=== PATIENT | male | born 1950 | race Caucasian/White ===

== ENCOUNTER → 2019-01-27 11:13 | Outpatient (CLI) | payer OTHER, SELFPAY ==
[2019-01-27 11:33] LABS: Bacteria Urine None Seen; RBC Urine None Seen (0-5/HPF); WBC Urine None Seen (0-5/HPF)
[2019-01-27 11:59] LABS: Add Manual Diff / Slide Review NO; Basophils Absolute Auto 0 /uL (0-100); Basophils Percent Auto 0.6 % (0-2); Eosinophils Absolute Auto 200 /uL (0-450); Eosinophils Percent Auto 3.2 % (2-4); Hematocrit 44.5 % (41-53); Hemoglobin 15.4 g/dL (13.5-17.5); Lymphocytes Absolute Auto 1700 /uL (1100-4500); Lymphocytes Percent Auto 23.8 % (25-40); Mean Corpuscular HGB Conc 34.8 % (30-36); Mean Corpuscular Volume 89.3 fL (80-100); Monocytes Absolute Auto 500 /uL (0-900); Monocytes Percent Auto 7.5 % (3-14); Neutrophils Absolute Auto 4600 /uL (1500-7000); Neutrophils Percent Auto 64.9 % (50-75); Platelet Count 217 X10^3/uL (150-400); Red Blood Cell Count 4.98 X10^6/uL (4.5-5.9); Red Cell Distribution Width 13.6 % (11.6-14.8); White Blood Cell Count 7.1 X10^3/uL (4.5-11.0)
[2019-01-27 12:17] LABS: BUN Creatinine Ratio 27.5 (6-22); Blood Urea Nitrogen 22 mg/dL (9-20); Calcium 9.7 mg/dL (8.4-10.2); Carbon Dioxide 27 mmol/L (22-32); Chloride 102 mmol/L (98-107); Estimated Glomerular Filt Rate > 60.0 mL/min (>60); Glucose 88 mg/dL (80-110); HEMOLYSIS < 15 (0-50); Hemoglobin A1C% w Est Avg Glu 5.3 % (4.0-6.0); Potassium 4.3 mmol/L (3.4-5.1); Sodium 138 mmol/L (137-145)
[2019-01-27 12:38] LABS: Appearance Urine UA CLEAR; Bilirubin Urine UA NEGATIVE (NEGATIVE); Color Urine UA YELLOW; Glucose Urine UA NEGATIVE (Negative); Ketones Urine UA NEGATIVE (NEGATIVE); Leukocyte Esterase Urine UA NEGATIVE (NEGATIVE); Nitrite Urine UA NEGATIVE (Negative); Occult Blood Urine UA NEGATIVE (Negative); Protein Urine UA NEGATIVE (Negative); Specific Gravity Urine UA 1.015 (1.000-1.035); Urobilinogen Urine UA 0.2 E.U./dL (0.2)
[2019-01-27 12:57] LABS: Culture Indicated Urine Cult Not Indicated; Urine Comments Microscopic Normal
== END ==
PROVIDERS: PCP Internal Medicine; Visit Provider Orthopaedic Surgery
DX: N39.0 Urinary tract infection, site not specified (principal); R73.9 Hyperglycemia, unspecified; Z01.818 Encounter for other preprocedural examination
CPT/HCPCS: 36415; 80048; 81001; 83036; 85025; 93005; 93010

== ENCOUNTER 2019-02-11 08:41 | Inpatient (IN) | payer OTHER, SELFPAY ==
[2019-02-01 07:36] VITALS: BMI 30.4
[2019-02-11] VITALS (12 sets, daily range): BP systolic 116–147; BP diastolic 63–88; PULSE 54–70; RESP 14–17; TEMP 35.7–37.1; O2SAT 95–98; BMI 29.2
--- NOTE | 2019-02-11 06:00 | DI.RAD.S_ITS ---
PROCEDURE: XR KNEE LT 1TO2V INDICATIONS: post op flms TECHNIQUE: 2 view(s) of the knee acquired. COMPARISON: X-ray, Knee, arthritic series, 11/09/2018. FINDINGS: Bones: Patient is status post knee joint arthroplasty. Hardware components are in expected positions. Visualized bony structures are intact. Soft tissues: Overlying postoperative changes are noted. IMPRESSION: Bone as plasty with prosthesis in anatomic alignment. Dictated by: rEic Virk M.D. on 02/11/2019 at 15:21 Approved by: Eric Virk M.D. on 02/11/2019 at 15:22
[2019-02-11] MEDS: VANCOMYCIN 1,000 MG/200 ML PIGGYBACK 200 MG IV (09:30)
[2019-02-11] MEDS: LACTATED RINGERS 1,000 ML 42 ML IV ×2 (09:30→13:00)
[2019-02-11] MEDS: ACETAMINOPHEN 325 MG TABLET 975 MG PO ×3 (09:31→19:56)
[2019-02-11] MEDS: PREGABALIN 75 MG CAPSULE PO (09:31)
[2019-02-11] MEDS: CELECOXIB 200 MG CAPSULE PO (09:32)
--- NOTE | 2019-02-11 10:58 | PM.PREOP ---
Pre-operative Note Interval Note History & Physical reviewed/Exam performed by Physician: Yes Changes to H&P: No
--- NOTE | 2019-02-11 10:59 | PM.OP.1 ---
Operative Date/Time/Diagnoses Date of procedure: 02/11/19 Time of procedure: 11:30 Pre-op diagnosis: Left knee osteoarthritis Post-op diagnosis: same Procedure & Clinicians Procedure: Left total knee arthroplasty Same procedure as scheduled: Yes Indications: The patient has had progressively worsening left knee pain with radiographic changes consistent with arthritis. Non-operative management has failed and the patient has requested total knee replacement. The risks, benefits and alternatives to surgery were discussed with the patient prior to proceeding. Risks discussed included, but were not limited to, failure to relieve pain, stiffness, infection, nerve damage, deep venous thrombosis, pulmonary embolism, stroke, coma, heart attack, permanent paralysis and , as well as the potential need for eventual revision of the prosthetic. Surgeon: Ene Jeffery Awning Erector: Inge Capellan Anesthesia Type: General and Spinal Operative Notes Findings: Severe left knee osteoarthritis, adequate stability Closure Type: primary Prosthetic devices, grafts, tissues, transplants, or devices: Jeffery and Nephew Journey BCS 2 size 7 femur, size 7 tibia, +9 poly, 38 mm oval patella Applied: drain(s) Estimated Blood Loss (mL): 250 Blood products transfused: none Tourniquet time (min): 92 Procedure in detail: The patient was seen in the pre-operative area, where the patient identified the left knee as the operative site and this was marked with my initials. The patient received pre-operative antibiotics, and was taken to the operating room and placed on the operative table in the supine position. After satisfactory anesthesia, a multimedia project manager out was performed. The left leg was encircled with a tourniquet about the proximal thigh, and the leg was prepared from the toes to the tourniquet with ChloroPrep in the usual fashion and draped through sterile drapes. The leg was elevated and exsanguinated with Eschmark bandage and the tourniquet inflated to [250] mmHg pressure. The knee was approached through an approximately 18 cm incision centered over the patella and carried into the knee through a medial parapatellar arthrotomy. A portion of the medial and lateral meniscus was resected. Soft tissue was carefully mobilized around the patella the patella was measured with a caliper. Bone was resected from the patella and the patellar height was reconstituted with up an appropriate sized patellar component. A cover was then placed on the patella. A small amount of additional medial and lateral meniscus was resected. The distal femur was cut at 5?. A [+2] cut was used. It looked like an appropriate distal femoral cut and the cut was made without difficulty. An extramedullary guide was used for the tibial cut. 8 mm was resected off the least affected side.The tibia was prepared. There was a large lateral osteophyte on the lateral tibial plateau and a deficient lateral femoral condyle. The rotation was assessed. The patient was placed in extension residual medial and lateral meniscus as well as any residual bone was carefully resected. [No] additional tibia was resected. Hemostasis was achieved especially posteriorly. Additional local was injected into the posterior capsule. The extension gap was assessed and additional releases for gap balancing were performed as necessary. It was checked with the gap flame cutting machine operator helper. The gap balancing in flexion was specifically checked I used combination of manual referencing with 3? of external rotation as well as gap balancing and they were both basically at the same place on the femur. The femur was finished for a size 7 which appeared appropriate without notching. The femoral component trial was placed and the notch was finished. The rotation was assessed and the appropriate size femoral guide was placed on the distal femur and finishing cuts were made. There was no evidence of notching. The anterior, posterior and chamfer cuts were then made. The posterior osteophytes and soft tissues were then removed. The posterior capsule was injected with part of a mixture of 60 ml 0.25% Marcaine mixed with 20 ml Exparel for post operative pain control. The remainder of this mixture was injected into the capsule and subcutaneous tissues during cement curing. The tibial and femoral components were then placed and the knee placed through a range of motion. Range of motion was [0-130], with good stability throughout the range. The trials were then removed, and the tibia was finished. The bone was prepared with pulsatile lavage, and dried with a sponge. Cement was applied and the final prosthetics placed. Excess cement was removed during and after cement curing. A brief Betadine soak was performed. After confirming there was no extruded cement posteriorly, the final tibial insert was placed. The knee was copiously irrigated and the tourniquet deflated. Hemostasis was obtained with the [bovie]. A drain was placed and brought out superolaterally. The capsule was closed with interrupted vicryl suture. The subcutaneous layer was closed with barbed sutures, and the skin with a running 3-0 V-Lock suture and Surgical glue. An Aquacel Ag dressing was applied and the patient was taken to recovery having tolerated the procedure well. Complications: none Post-operative Condition: stable Disposition: Acute Care Plan for aftercare: The patient will be maintained on a standard total knee replacement protocol with weight bearing as tolerated. The patient will receive aspirin and sequential compression devices for DVT prophylaxis. The patient will be discharged home when safe for the home environment.
[2019-02-11] MEDS: CEFAZOLIN 2 GM/100 ML FROZ.PIGGY IV ×2 (11:29→20:36)
[2019-02-11] MEDS: TRANEXAMIC ACID 1,000 MG VIAL 1000 MG INJ ×2 (11:30→12:15)
--- NOTE | 2019-02-11 12:01 | SUR.OPER ---
Supine on padded OR bed. Pillow under head, arms secured on padded armboards <90 degree abduction. Safety belt across torso. Non-operative leg secured with tape over blanket over lower leg. Operative leg secured in DeMayo/Guerrero positioner. Foam padded brace at thigh of operative leg.
--- NOTE | 2019-02-11 12:07 | PC.NURSE ---
Day shift: Pt not on AC unit at this time.
[2019-02-11] MEDS: BUPIVACAINE 0.25% W/ EPI 30 ML VIAL 60 ML INJ (12:12)
[2019-02-11] MEDS: BUPIVACAINE LIPOSOME 266 MG/20 ML VIAL INJ (12:13)
--- NOTE | 2019-02-11 12:17 | SUR.OPER ---
INHALER IN LABELED BAG TO PACU WITH PATIENT. GLASSES TO .
--- NOTE | 2019-02-11 15:05 | SUR.PHASEI ---
report given to Lashell SMYTH
--- NOTE | 2019-02-11 16:05 | PT.IIE ---
Current Diagnoses Unilateral primary osteoarthritis, left knee (02/11/19) Surgery Performed Operation Date: 02/11/19 10:45 Actual Procedures p Total Knee Arthroplasty(Left) - Ene Jeffery MD Surgical History (Last Updated 02/01/19 @ 08:17 by Maryanne Marcum, RN) History of arthroscopy of both knees (Acute) Hx of hernia repair (Acute) Hx of tonsillectomy (Acute) Medical History (Last Updated 02/01/19 @ 08:17 by Maryanne Marcum RN) Acid reflux (Acute) Asthma (Acute) Easy bruisability (Acute) Osteoarthritis (Acute) Pneumonia (Acute) SCC (squamous cell carcinoma) (Acute) Physical Therapy Inpatient Evaluation/Re-Eval M1 PT/OT-IP Prior Functional Status Start: 02/11/19 17:16 Freq: NEEDED Status: Active Protocol: Document 02/11/19 16:05 AB (Rec: 02/11/19 17:31 AB [id number]) Medical Review Prior Functional Status Medical History Reviewed Yes Diet/Fluid Consistency Regular Communication able to make needs known Mobility and Gait pt stated that he is independent with all mobilities and ambulation without AD. stated that he is able to walk ~ 3 miles without rest Social History Household Members spouse Living Arrangements House Number of Floors (Floors) Two Floors Number of Stairs To Enter/Railing? pt will stay on main level has 1 step to enter Home Environment Standard Height Toilet,Walk in Shower,Built-In Shower Seat Home Equipment Front Wheel Walker,Hand Held Shower,Grab Bars Near Toilet, Grab Bars In Shower M2 PT-IP Current Condition Start: 02/11/19 17:16 Freq: NEEDED Status: Active Protocol: Document 02/11/19 16:05 AB (Rec: 02/11/19 17:31 AB [id number]) Physical Therapy Current Condition Current Condition Evaluation Date 02/11/19 Treatment Diagnosis s/p L TKA; difficulty in walking Onset Date 02/11/19 Weight Bearing Status Weight Bearing Status Weight Bear as Tolerated M3 PT-IP Subjective Start: 02/11/19 17:16 Freq: NEEDED Status: Active Protocol: Document 02/11/19 16:05 AB (Rec: 02/11/19 17:31 AB [id number]) Subjective Physical Therapy Visit Type Type Initial Evaluation Visit Start Time 16:05 Visit Stop Time 17:10 Total Visit Minutes 65 Number of BRASSIERE CUP MOLD CUTTER Visits 0 Physical Therapy Visit Comments Patient Comments pt agreeable to do PT Patient Goals wants to go home tonight Therapy Pain Assessment Pain Present Pain Present Pain Reported Location Left Knee Intensity 1 Scale Used Numeric (1 - 10) M4 PT-IP Mobility and Gait Start: 02/11/19 17:16 Freq: NEEDED Status: Active Protocol: Document 02/11/19 16:05 AB (Rec: 02/11/19 17:31 AB [id number]) PT-Bed Mobility Assessment Supine to Sit Supine to Sit Standby Assistance PT-Transfer Assessment Sit to and From Stand Sit to and from Stand Standby Assistance,Contact Guard Assistance,1 Person Assistance,Use of Upper Extremities Equipment Transfer Assistive Device Bed Rail,Front Wheeled Walker Orthotic/Prosthetic Devices or Brace: No Transfers Transfer Destination Chair Transfer Technique Stand Step Pivot Transfer Ability Level of Assist Standby Assistance,Contact Guard Assistance Comments Mobility Comments pt completed supine to sit SBA . completed sit to stand SBA to CGA and completed step transfer to chair using FWW CGA. pt completed sit to stand from chair CGA and ambulated in room using FWW ~ 30 ft CGA. pt sat back on chair. caregiver training conducted. educated spouse on how to assist pt and how to use safety belt. spouse assisted pt with sit to stand and ambulation in room using FWW ~ 75 ft. spouse provided CGA. pt agreed to do steps. ambulated in hallway using FWW CGA ~ 100 ft with spouse assisting. pt completed up/down platform step using FWW CGA initially assisted by PT then pt completed again with spouse assisted and completed safely. pt assisted back to his room . ambulated from w/c to the chair using FWW CGA with spouse assisting. pt sat on chair. set up pt for dinner. call light within reach. left pt with spouse in room . Gait Assessment Gait Gait Assistance Required: Standby Assistance,Contact Guard Assist Distance (Feet) 100 Able to Maintain Weight Bearing Status Yes During Gait Assistive Devices Assistive Device Gait Belt,Front Wheeled Walker Orthotic/Prosthetic Devices or Brace: No Gait Deviations General Gait Pattern Antalgic,Decreased Stride Length,Decreased Feet Clearance,Narrow Based Gait Factors Limiting Gait Function Factors Limiting Gait Function Decreased Activity Tolerance, Decreased Sensation,Decreased Strength,Limited Range of Motion,Pain,Poor Balance,Poor Safety Awareness Comments Gait Comments pls refer to mobility section for details Stair Climbing Assessment Evaluation Level of Assist On Stairs Contact Guard Assistance Devices Stair Climbing Assistive Devices Front Wheel Walker Technique/Endurance Stair Climbing Direction Ascend and Descend Stair Climbing Technique Step to Step Number of Steps Climbed 1 Query Text: Stair Climbing Set # Repetitions (reps) 2 Comments Stair Climbing Comments pls refer to mobiltiy section for details PT-Balance Assessment Sitting Balance and Reactions Static Sitting Balance Ability Normal Dynamic Sitting Balance Ability Normal Standing Balance and Reactions Static Standing Balance Ability Good Dynamic Standing Balance Ability Fair Device Used FWW M5 PT-IP Objective Assessments Start: 02/11/19 17:16 Freq: NEEDED Status: Active Protocol: Document 02/11/19 16:05 AB (Rec: 02/11/19 17:31 AB [id number]) Orientation Orientation/Cognition Level of Alertness Alert Orientation Name,Age,Birthday,Month,Date, Year,Day of Week,Place, Situation Language Function Ability No Deficits Noted Safety Awareness Understands Safety Issues Memory Description No Deficits Noted Gross Range of Motion Lower Extremity ROM Assessment Within Functional Limits Impairments L knee flexion: ~ 100 deg Strength Lower Extremity Strength Assessment Left Impaired Hip 4/5 Knee 4-/5 Coordination Assessment Gross Coordination Gross Coordination WNL Sensation Assessment Sensation Sensation Description Numbness Comments Sensation Comments c/o numbness on buttocks Muscle Tone Muscle Tone WNL Yes M6 PT-IP Treatment Start: 02/11/19 17:16 Freq: NEEDED Status: Active Protocol: Document 02/11/19 16:05 AB (Rec: 02/11/19 17:31 AB [id number]) Physical Therapy Treatment Exercises Exercises Heel Slides Education Education Provided Precautions,Weight Bearing Status,Post-Op Packet,Safety Other Treatments Other Treatment Performed reviewed HEP with pt M7 PT-IP Assessment and Plan Start: 02/11/19 17:16 Freq: NEEDED Status: Active Protocol: Document 02/11/19 16:05 AB (Rec: 02/11/19 17:31 AB [id number]) PT Summary Assessment and Plan Potential Rehabilitation Potential Good Status of Condition at Evaluation Stable Summary Impairments Pain,ROM,Strength,Balance, Sensation,Bed Mobility, Transfers,Gait,Activity Tolerance Assessment Summary pt requiring SBA to CGA with mobility. pt plans to go home and spouse to assist him. caregiver training conducted and spouse was able to assist pt safely. pt may go home when medically stable. Goals Bed Mobility Goal Independent Transfer Goal Independent,Front Wheeled Walker Gait Goal Independent,Front Wheel Walker Gait Distance 250 Other Goals up/down 1 step using FWW SBA Days to Meet Goals 3 Frequency of Treatment Frequency Of Treatment Twice a Day Treatment Plan Physical Therapy Treatment Plan Bed Mobility Training,Transfer Training,Gait Training, Therapeutic Exercise,Balance Retraining,Post Op Education, Discharge Planning,Hot or Cold Pack,Neuromuscular Re-ed, Coordination Retraining,Manual Therapy Recommendations To Nursing Amount of Assist Needed 1 Person Assist Discharge Recommendations PT Discharge Recommendations Home with Assistance, Outpatient PT
--- NOTE | 2019-02-11 16:25 | PC.NURSE ---
Addendum entered by Shasta Hinton R.N. 02/11/19 22:06: also made Dr. Araujo aware regarding their desire to discharge home, however patient decided to stay for the night. Addendum entered by Shasta Hinton R.N. 02/11/19 22:03: Patient wanted to go home this evening, per PT, patient safe for home discharge. Patient later decided to not to discharge due to pain control and hemovac drainage. Notified Dr. Araujo regarding amount of hamovac drainage of 250 ml at 1900, bloody drainage. Original Note: Dominique shift note: Patient awake, alert, and pleasant. Sitting up in bed, with Aquacel to left knee secured with Ramin Wrap. SCDs in place. at bedside providing supportive care. Patient states would like to go home this evening. PT Padma at bedside providing supportive care. Call light within reach
[2019-02-11] MEDS: LACTATED RINGERS 1,000 ML 125 ML IV (16:54)
[2019-02-11] MEDS: OXYCODONE IR 5 MG TABLET PO ×3 (17:26→23:33)
[2019-02-11] MEDS: ASPIRIN EC 81 MG TABLET PO (19:57)
[2019-02-11] MEDS: DOCUSATE 100 MG CAPSULE PO (19:57)
[2019-02-11] MEDS: ZOLPIDEM 5 MG TABLET 2.5 MG PO (21:43)
[2019-02-12] MEDS: OXYCODONE IR 5 MG TABLET PO ×3 (02:14→10:28)
[2019-02-12] MEDS: LACTATED RINGERS 1,000 ML 125 ML IV (04:31)
[2019-02-12] MEDS: CEFAZOLIN 2 GM/100 ML FROZ.PIGGY IV (04:31)
[2019-02-12 04:35] VITALS: BP 129/58; PULSE 70; RESP 16; TEMP 37.4; O2SAT 97
[2019-02-12 06:12] LABS: Hematocrit 36.3 % (41-53); Hemoglobin 12.6 g/dL (13.5-17.5)
--- NOTE | 2019-02-12 08:30 | PT.IPTN ---
Current Diagnoses Unilateral primary osteoarthritis, left knee (02/11/19) Surgery Performed Operation Date: 02/11/19 10:45 Actual Procedures p Total Knee Arthroplasty(Left) - Ene Jeffery MD Physical Therapy Treatment Note M2 PT-IP Current Condition Start: 02/11/19 17:16 Freq: NEEDED Status: Active Protocol: Document 02/11/19 16:05 AB (Rec: 02/11/19 17:31 AB [id number]) Physical Therapy Current Condition Current Condition Evaluation Date 02/11/19 Treatment Diagnosis s/p L TKA; difficulty in walking Onset Date 02/11/19 Weight Bearing Status Weight Bearing Status Weight Bear as Tolerated M3 PT-IP Subjective Start: 02/11/19 17:16 Freq: NEEDED Status: Active Protocol: Document 02/12/19 07:30 AMB (Rec: 02/12/19 11:43 AMB [email or web address]) Subjective Physical Therapy Visit Type Type Treatment Note Visit Start Time 07:30 Visit Stop Time 08:10 Total Visit Minutes 40 Number of STAVE INSPECTOR Visits 0 Physical Therapy Visit Comments Patient Comments Pt states pain is 2/10. Hoping to go home today. M4 PT-IP Mobility and Gait Start: 02/11/19 17:16 Freq: NEEDED Status: Active Protocol: Document 02/12/19 07:30 AMB (Rec: 02/12/19 11:43 AMB [id number]) PT-Bed Mobility Assessment Supine to Sit Supine to Sit Standby Assistance PT-Transfer Assessment Sit to and From Stand Sit to and from Stand Standby Assistance,Use of Upper Extremities Equipment Transfer Assistive Device Front Wheeled Walker Transfers Transfer Destination Chair Transfer Technique Stand Step Pivot Transfer Ability Level of Assist Standby Assistance Comments Mobility Comments Pt ambulated 100 ft; with CGA from spouse. Spouse appropriately guarding with gait belt. Used w/c to get the rest of the way to the stairs due to pain management. Pt ascended 1 step with FWW with spouse providing CGA x 2. Spouse/pt needed cues for sequencing step but then performed appropriately. Gait Assessment Gait Gait Assistance Required: Standby Assistance,Contact Guard Assist Distance (Feet) 100 Able to Maintain Weight Bearing Status Yes During Gait Assistive Devices Assistive Device Gait Belt,Front Wheeled Walker Orthotic/Prosthetic Devices or Brace: No Gait Deviations General Gait Pattern Antalgic,Decreased Stride Length,Decreased Feet Clearance,Narrow Based Gait Comments Gait Comments Pt unable to step through due to pain Stair Climbing Assessment Evaluation Level of Assist On Stairs Contact Guard Assistance Devices Stair Climbing Assistive Devices Front Wheel Walker Technique/Endurance Stair Climbing Direction Ascend and Descend Stair Climbing Technique Step to Step Number of Steps Climbed 1 Stair Climbing Set # Repetitions (reps) 2 M5 PT-IP Objective Assessments Start: 02/11/19 17:16 Freq: NEEDED Status: Active Protocol: Document 02/11/19 16:05 AB (Rec: 02/11/19 17:31 AB [id number]) Orientation Orientation/Cognition Level of Alertness Alert Orientation Name,Age,Birthday,Month,Date, Year,Day of Week,Place, Situation Language Function Ability No Deficits Noted Safety Awareness Understands Safety Issues Memory Description No Deficits Noted Gross Range of Motion Lower Extremity ROM Assessment Within Functional Limits Impairments L knee flexion: ~ 100 deg Strength Lower Extremity Strength Assessment Left Impaired Hip 4/5 Knee 4-/5 Coordination Assessment Gross Coordination Gross Coordination WNL Sensation Assessment Sensation Sensation Description Numbness Comments Sensation Comments c/o numbness on buttocks Muscle Tone Muscle Tone WNL Yes M6 PT-IP Treatment Start: 02/11/19 17:16 Freq: NEEDED Status: Active Protocol: Document 02/12/19 07:30 AMB (Rec: 02/12/19 11:43 AMB [email or web address]) Physical Therapy Treatment Exercises Exercises Ankle Pumps,Quad Sets,Heel Slides,Short Arc Quads Education Education Provided Precautions,Weight Bearing Status,Post-Op Packet,Safety Other Treatments Other Treatment Performed reviewed HEP extensively as pt had multiple questions M7 PT-IP Assessment and Plan Start: 02/11/19 17:16 Freq: NEEDED Status: Active Protocol: Document 02/12/19 07:30 AMB (Rec: 02/12/19 11:43 AMB [id number]) PT Summary Assessment and Plan Summary Assessment Summary Pt requiring SBA and then CGA with stairs. Pt's spouse able to provide this appropriately . Pt to go home with spouse when medically stable. Recommendations To Nursing Amount of Assist Needed 1 Person Assist Discharge Recommendations PT Discharge Recommendations Home with Assistance, Outpatient PT
[2019-02-12] MEDS: DOCUSATE 100 MG CAPSULE PO (08:35)
[2019-02-12] MEDS: ASPIRIN EC 81 MG TABLET PO (08:35)
[2019-02-12] MEDS: CELECOXIB 100 MG CAPSULE PO (08:35)
[2019-02-12] MEDS: ACETAMINOPHEN 325 MG TABLET 975 MG PO (08:36)
[2019-02-12 09:33] VITALS: BP 137/73; PULSE 82; RESP 16; TEMP 36.9; O2SAT 95
--- NOTE | 2019-02-12 10:41 | CM.IDA ---
Initial DCP Assessment Note: Pt is a 68 yo resident of [place]. Pt is POD#1 from [facility] knee surgery done by Dr Jeffery. PCP: Dori Jovel Payer: Jaeck LAWRENCE Reviewed chart. Pt discussed in multidisciplinary rounds. PT pending today. Met w/pt and his spouse at bedside, explained SW role. Both eager to return home today and tell this SEEDLING SORTER that the only concern voiced by Ortho team is that pt's drain continues to have significant drainage and so he has not been cleared for DC yet. Pt feels confident about his therapy session this morning and is planning to return home w/spouse to assist. No barriers identified to safe return home w/spouse assist, outpt f/u. SAMARA Padron Discharge Planning/Care Management Advanced directive, confirm from FAMILY Start: 02/11/19 16:07 Freq: Q24H Status: Active Protocol: Document 02/11/19 16:07 EM (Rec: 02/11/19 16:31 EM [id number]) Advance Directive, confirm on record Time 16:31 Person contacted [place] Copy received No CM Discharge Assessment Start: 02/12/19 10:39 Freq: Status: Active Protocol: Document 02/12/19 10:40 BRIAN (Rec: 02/12/19 10:41 BRIAN [id number]) Discharge Planning Assessment Assigned Assisted Living Administrator SAMARA Booker DPOA/Assigned Designee Name Mercy Cho spouse Contact Information [phone] Advance Directives? Yes Advance Directives on File No History Provided By Patient,Significant Other Prior Living Arrangements House Household Members spouse Type of transporation used prior to Drives own vehicle admit Independent with ADL's Yes Is patient alert and oriented? Yes Barriers to Discharge No Discharge Plan Home Transportation Arrangement Family Referrals Initiated None needed Whiteboard Updated in Patient Room with Yes name and ext. # of Assisted Living Administrator Review Status In Process
--- NOTE | 2019-02-12 13:07 | PC.NURSE ---
Day shift: Pt left unit in WC to private car driven by spouse by this clinical writer. Paperwork signed and all questions answered. Pt has all personal belongings. Pt is [employer] and has MD scrips. Also MD scrip for [employer] given to Pt.
== END 2019-02-12 13:08 | disposition home or self-care (01) | DRG 470 ==
PROVIDERS: Admitting Provider Orthopaedic Surgery; PCP Internal Medicine; Visit Provider Orthopaedic Surgery
PROC: 0SRD0JZ Replacement of Left Knee Joint with Synthetic Substitute, Open Approach (ICD-10-PCS; CPT 27447; principal; 2019-02-11 10:45)
DX: M17.12 Unilateral primary osteoarthritis, left knee (principal)
CPT/HCPCS: 36415; 73560; 85014; 85018; 97110; 97116; 97161; 97530; C1776; C9290; J0690; J2250; J2704; J3010

== ENCOUNTER → 2019-06-09 14:03 | Outpatient (CLI) | payer OTHER, SELFPAY ==
[2019-02-11 15:45] VITALS: BMI 29.2
[2019-06-09 14:38] LABS: Add Manual Diff / Slide Review NO; Basophils Absolute Auto 0 /uL (0-100); Basophils Percent Auto 0.5 % (0-2); Eosinophils Absolute Auto 200 /uL (0-450); Eosinophils Percent Auto 3.4 % (2-4); Hematocrit 44.1 % (41-53); Hemoglobin 14.8 g/dL (13.5-17.5); Lymphocytes Absolute Auto 1500 /uL (1100-4500); Lymphocytes Percent Auto 22.6 % (25-40); Mean Corpuscular HGB Conc 33.5 % (30-36); Mean Corpuscular Hemoglobin 27.3 PG (26-34); Mean Corpuscular Volume 81.6 fL (80-100); Monocytes Absolute Auto 500 /uL (0-900); Monocytes Percent Auto 7.8 % (3-14); Neutrophils Absolute Auto 4500 /uL (1500-7000); Neutrophils Percent Auto 65.7 % (50-75); Platelet Count 218 X10^3/uL (150-400); Red Cell Distribution Width 18.4 % (11.6-14.8); White Blood Cell Count 6.8 X10^3/uL (4.5-11.0)
== END ==
PROVIDERS: PCP Internal Medicine; Visit Provider Orthopaedic Surgery
DX: Z01.812 Encounter for preprocedural laboratory examination (principal)
CPT/HCPCS: 36415; 85025

== ENCOUNTER 2019-07-06 11:38 | Day surgery (SDC) | payer OTHER, SELFPAY ==
[2019-02-11 15:45] VITALS: BMI 29.2
[2019-06-18 08:41] VITALS: BMI 30.1
[2019-07-06] VITALS (12 sets, daily range): BP systolic 97–150; BP diastolic 58–86; PULSE 70–86; RESP 13–17; TEMP 35.9–36.8; O2SAT 93–97
--- NOTE | 2019-07-06 06:00 | DI.RAD.S_ITS ---
PROCEDURE: XR KNEE RT 1TO2V INDICATIONS: total right knee TECHNIQUE: 2 views of the knee were acquired. COMPARISON: [facility] [place], CR, XR KNEE ARTHRITIC SERIES LT, 11/09/2018, 16:30. [facility], MR, MR KNEE LEFT WITHOUT CONTRAST, 10/29/2018, 8:52. [facility] [place], CR, XR KNEE ARTHRITIC SERIES RT, 07/01/2019, 11:37. [facility], CR, XR KNEE LT 1TO2V, 02/11/2019, 14:43. FINDINGS: Bones: No fractures or dislocations involving the right knee which has undergone total knee arthroplasty with device is in normal position and establishing normal alignment. No suspicious bony lesions. Note is made of rounded calcific radiodensities posterior to the right knee, previously present, potentially loose bodies within a large Orozco's cyst. Soft tissues: No joint effusion. No suspicious soft tissue calcifications. IMPRESSION: Normal alignment after right total knee arthroplasty. 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 Dictated by: Petros Lopez M.D. on 07/06/2019 at 18:04 Approved by: Petros Lopez M.D. on 07/06/2019 at 18:07
[2019-07-06] MEDS: ACETAMINOPHEN 325 MG TABLET 975 MG PO (12:20)
[2019-07-06] MEDS: PREGABALIN 75 MG CAPSULE PO (12:21)
[2019-07-06] MEDS: CELECOXIB 200 MG CAPSULE PO (12:21)
[2019-07-06] MEDS: LACTATED RINGERS 1,000 ML 42 ML IV ×2 (12:37→15:42)
[2019-07-06] MEDS: VANCOMYCIN 1,000 MG/200 ML PIGGYBACK 200 MG IV (13:19)
--- NOTE | 2019-07-06 14:19 | PM.PREOP ---
Pre-operative Note Interval Note History & Physical reviewed/Exam performed by Physician: Yes Changes to H&P: No
--- NOTE | 2019-07-06 14:20 | PM.OP.1 ---
Operative Date/Time/Diagnoses Date of procedure: 07/06/19 Time of procedure: 14:58 Pre-op diagnosis: Severe posttraumatic right knee osteoarthritis, history of previous right ACL reconstruction with retained internal fixation Post-op diagnosis: same Procedure & Clinicians Procedure: Right total knee arthroplasty, removal of it retained internal fixation Same procedure as scheduled: Yes Indications: The patient has had progressively worsening right knee pain with radiographic changes consistent with arthritis. He has a history of a right ACL reconstruction with severe posttraumatic arthritis and retained internal fixation. Non-operative management has failed and the patient has requested total knee replacement. The risks, benefits and alternatives to surgery were discussed with the patient prior to proceeding. Risks discussed included, but were not limited to, failure to relieve pain, stiffness, infection, nerve damage, deep venous thrombosis, pulmonary embolism, stroke, coma, heart attack, permanent paralysis and , as well as the potential need for eventual revision of the prosthetic. Surgeon: Ene Jeffery Activities Volunteer: Lindsey Murdock Anesthesia Type: General and Spinal Operative Notes Findings: Severe right knee osteoarthritis, adequate stability, adequate bone Closure Type: primary Specimen(s): none sent Prosthetic devices, grafts, tissues, transplants, or devices: Journey BCS 2 size 7 femur, size 6 tibia, 38 mm oval patella, +9 poly Applied: drain(s) Estimated Blood Loss (mL): 250 Blood products transfused: none Tourniquet time (min): 118 Procedure in detail: The patient was seen in the pre-operative area, where the patient identified the right knee as the operative site and this was marked with my initials. The patient received pre-operative antibiotics, and was taken to the operating room and placed on the operative table in the supine position. After satisfactory anesthesia, a interactive multimedia designer out was performed. The right leg was encircled with a tourniquet about the proximal thigh, and the leg was prepared from the toes to the tourniquet with ChloroPrep in the usual fashion and draped through sterile drapes. The leg was elevated and exsanguinated with Eschmark bandage and the tourniquet inflated to 250 mmHg pressure. The knee was approached through an approximately 18 cm incision centered over the patella and carried into the knee through a medial parapatellar arthrotomy. A portion of the medial and lateral meniscus was resected. Soft tissue was carefully mobilized around the patella the patella was measured with a caliper. Bone was resected from the patella and the patellar height was reconstituted with up an appropriate sized patellar component. A cover was then placed on the patella. A small amount of additional medial and lateral meniscus was resected. The distal femur was cut at 5?. A +2 cut was used. It looked like an appropriate distal femoral cut and the cut was made without difficulty. An extramedullary guide was used for the tibial cut. 10 mm was resected off the least affected side. The patient was placed in extension residual medial and lateral meniscus as well as any residual bone was carefully resected. No additional tibia was resected. Hemostasis was achieved especially posteriorly. Additional local was injected into the posterior capsule. The extension gap was assessed and additional releases for gap balancing were performed as necessary. It was checked with the gap logging operations inspector. The rotation was assessed and the appropriate size femoral guide was placed on the distal femur and finishing cuts were made. There was no evidence of notching. The anterior, posterior and chamfer cuts were then made. The posterior osteophytes and soft tissues were then removed. The posterior capsule was injected with part of a mixture of 60 ml 0.25% Marcaine mixed with 20 ml Exparel for post operative pain control. Multiple loose bodies were removed from the posterior aspect of the knee. The notch was finished. The remainder of this mixture was injected into the capsule and subcutaneous tissues during cement curing.l tibial and femoral components were then placed and the knee placed through a range of motion. Range of motion was 0-130, with good stability throughout the range. The trials were then removed, and the tibia was drilled. The screw was encountered at the inferior aspect of the drill. The incision was extended distally dissection was carried out down along the proximal medial tibia and the screw head was carefully identified cleared of soft tissue and removed. The drill was then reinserted for the tibial base place and the punch was inserted. There was significant sclerotic bone in the medial tibia and multiple additional drill holes were made with a 2.0 drill.. The bone was prepared with pulsatile lavage, and dried with a sponge. Cement was applied and the final prosthetics placed. Excess cement was removed during and after cement curing. A brief Betadine soak was performed. After confirming there was no extruded cement posteriorly, the final tibial insert was placed. The knee was copiously irrigated and the tourniquet deflated. Hemostasis was obtained with the Aquamantys system. A drain was placed and brought out superolaterally. The capsule was closed with interrupted nonabsorbable suture. The subcutaneous layer was closed with barbed sutures, and the skin with a running 3-0 V-Lock suture and Surgical glue. An Aquacel Ag dressing was applied and the patient was taken to recovery having tolerated the procedure well. Complications: none Post-operative Condition: stable Disposition: Acute Care Plan for aftercare: The patient will be maintained on a standard total knee replacement protocol with weight bearing as tolerated. The patient will receive aspirin and sequential compression devices for DVT prophylaxis. The patient will be discharged home when safe for the home environment.
[2019-07-06] MEDS: CEFAZOLIN 2 GM/100 ML FROZ.PIGGY IV ×2 (14:29→21:16)
[2019-07-06] MEDS: TRANEXAMIC ACID 1,000 MG VIAL 1000 MG INJ ×2 (15:01→17:16)
[2019-07-06] MEDS: BUPIVACAINE LIPOSOME 266 MG/20 ML VIAL INJ (15:25)
[2019-07-06] MEDS: SODIUM CHLORIDE IRRIG SOLUTION 250 ML, POVIDONE-IODINE SPONGE STICKS 1 APPLIC IRR (15:26)
[2019-07-06] MEDS: BUPIVACAINE 0.25% W/ EPI 30 ML VIAL INJ (15:29)
[2019-07-06] MEDS: LACTATED RINGERS 1,000 ML 125 ML IV (18:38)
[2019-07-06] MEDS: ASPIRIN EC 81 MG TABLET PO (21:16)
[2019-07-06] MEDS: ACETAMINOPHEN 325 MG TABLET 650 MG PO (21:21)
[2019-07-06] MEDS: ZOLPIDEM 5 MG TABLET 2.5 MG PO (22:41)
[2019-07-07] MEDS: IBUPROFEN 400 MG TABLET PO ×3 (00:58→08:14)
[2019-07-07 02:59] VITALS: BP 97/57; PULSE 72; RESP 16; TEMP 36.4
[2019-07-07] MEDS: LACTATED RINGERS 1,000 ML 125 ML IV (03:38)
[2019-07-07] MEDS: OXYCODONE/ACETAMINOPHEN 5/325 TABLET 1 TAB PO ×2 (03:40→08:15)
[2019-07-07] MEDS: CEFAZOLIN 2 GM/100 ML FROZ.PIGGY IV (05:47)
[2019-07-07 07:37] LABS: Hematocrit 35.2 % (41-53); Hemoglobin 11.6 g/dL (13.5-17.5)
[2019-07-07 07:45] VITALS: BP 104/58; PULSE 67; RESP 16; TEMP 36.8; O2SAT 94
[2019-07-07] MEDS: DOCUSATE 100 MG CAPSULE PO (08:13)
[2019-07-07] MEDS: ACETAMINOPHEN 325 MG TABLET 650 MG PO (08:14)
[2019-07-07] MEDS: ASPIRIN EC 81 MG TABLET PO (08:15)
--- NOTE | 2019-07-07 09:00 | CM.DANOTE ---
DCP: Case received, EMR reviewed and met with patient. Introduced self and role. Was able to converse with patient to obtain baseline history involving activity and living situation. DCP assessment completed with information currently available. Patient is a 68 year old male who admitted yesterday morning to the care of the orthopedic team. PCP: Dr. Jovel. Payer: confirmed: [facility]. Patient came to the hospital for a surgical procedure. He had total right knee arthroplasty, secondary to right knee osteoarthritis. Met with patient in his room. Pleasant. Is waiting for physical therapy to work with him. Patient had his left knee done recently in January. Patient is independent, and is already set up with outpatient P.T. here in the hospital. P: DCP to continue to follow. Patient should be able to go home when medically stable and cleared by P.T. Consuelo Handy RN/Collections Officer
--- NOTE | 2019-07-07 10:14 | PT.IIE ---
Current Diagnoses Unilateral post-traumatic osteoarthritis, right knee (07/06/19) Surgery Performed Operation Date: 07/06/19 13:45 Actual Procedures p Total Knee Arthroplasty, poss removal of hardware from upper extremity or lower extremity(Right) - Ene Jeffery MD Surgical History (Last Updated 06/18/19 @ 08:47 by Maryanne Marcum, RN) History of arthroplasty of left knee (Acute 02/11/19) History of arthroscopy of both knees (Acute) Hx of hernia repair (Acute) Hx of tonsillectomy (Acute) Medical History (Last Updated 02/01/19 @ 08:17 by Maryanne Marcum RN) Acid reflux (Acute) Asthma (Acute) Easy bruisability (Acute) Osteoarthritis (Acute) Pneumonia (Acute) SCC (squamous cell carcinoma) (Acute) Physical Therapy Inpatient Evaluation/Re-Eval M1 PT/OT-IP Prior Functional Status Start: 07/07/19 08:21 Freq: NEEDED Status: Active Protocol: Document 07/07/19 10:14 DLM (Rec: 07/07/19 10:24 DL [id number]) Medical Review Prior Functional Status Medical History Reviewed Yes Diet/Fluid Consistency Regular Communication WNL Mobility and Gait Independent without device, active, works out a gym Activities of Daily Living and IADL's Independent Social History Household Members spouse Living Arrangements House Number of Floors (Floors) Two Floors Number of Stairs To Enter/Railing? 1 platform step to enter Home Equipment Front Wheel Walker,Straight Cane Additional Social History Comment his is currently out of town skiing so he has friends who will stay with him at discharge to helpt M2 PT-IP Current Condition Start: 07/07/19 08:21 Freq: NEEDED Status: Active Protocol: Document 07/07/19 10:14 DLM (Rec: 07/07/19 10:24 DLM [id number]) Physical Therapy Current Condition Current Condition Evaluation Date 07/07/19 Treatment Diagnosis right TKA, impaired gait Onset Date 07/06/19 M3 PT-IP Subjective Start: 07/07/19 08:21 Freq: NEEDED Status: Active Protocol: Document 07/07/19 10:14 DLM (Rec: 07/07/19 10:24 DLM [id number]) Subjective Physical Therapy Visit Type Type Initial Evaluation Visit Start Time 09:30 Visit Stop Time 10:14 Total Visit Minutes 44 Number of FRONT END SPECIALIST Visits 0 Physical Therapy Visit Comments Patient Comments He wants to go home today Patient Goals get back to skiing in the winter Therapy Pain Assessment Pain When Pain Assessed During Mobility Pain Present Pain Present Pain Reported Location Right Knee Intensity 2 Scale Used Numeric (1 - 10) Description Aching Pain Management Techniques Apply Cold,Elevation M4 PT-IP Mobility and Gait Start: 07/07/19 08:21 Freq: NEEDED Status: Active Protocol: Document 07/07/19 10:14 DLM (Rec: 07/07/19 10:24 [facility] [id number]) PT-Bed Mobility Assessment Rolling Level of Assist Independent Supine to Sit Supine to Sit Independent Sit to Supine Sit to Supine Independent Scooting Scooting to Edge of Bed Independent Scooting Up and Down in Bed Independent PT-Transfer Assessment Sit to and From Stand Sit to and from Stand Independent,Use of Upper Extremities Equipment Transfer Assistive Device Gait Belt,Front Wheeled Walker Transfers Transfer Destination Chair Transfer Technique Stand Step Pivot Transfer Ability Level of Assist Independent,Use of Upper Extremities Comments Mobility Comments educated pt to use the FWW all the time, provided safety education and cuing during mobility Gait Assessment Gait Gait Assistance Required: Independent Distance (Feet) 200 Assistive Devices Assistive Device Gait Belt,Front Wheeled Walker Gait Deviations General Gait Pattern Antalgic Factors Limiting Gait Function Factors Limiting Gait Function Decreased Activity Tolerance, Decreased Strength,Limited Range of Motion,Pain Stair Climbing Assessment Evaluation Level of Assist On Stairs Standby Assistance Devices Stair Climbing Assistive Devices Front Wheel Walker Technique/Endurance Stair Climbing Direction Ascend and Descend Stair Climbing Technique Step to Step Number of Steps Climbed 1 Query Text: Stair Climbing Set # Repetitions (reps) 1 Comments Stair Climbing Comments curb step used to simulate home entry step PT-Balance Assessment Sitting Balance and Reactions Static Sitting Balance Ability Normal Dynamic Sitting Balance Ability Normal Standing Balance and Reactions Static Standing Balance Ability Good Dynamic Standing Balance Ability Good Device Used FWW M5 PT-IP Objective Assessments Start: 07/07/19 08:21 Freq: NEEDED Status: Active Protocol: Document 07/07/19 10:14 DLM (Rec: 07/07/19 10:24 [facility] [id number]) Orientation Orientation/Cognition Level of Alertness Alert Orientation Name,Age,Birthday,Month,Date, Year,Day of Week,Place, Situation Language Function Ability No Deficits Noted Safety Awareness Decreased Safety Awareness Memory Description No Deficits Noted Comments pt up earlier this AM without the fWW, told nursing he did not need it Gross Range of Motion Upper Extremity ROM Assessment Within Functional Limits Lower Extremity ROM Assessment Right Impaired Impairments right knee 5-92 degrees, mari wrap on right knee post-op Strength Upper Extremity Strength Assessment Within Functional Limits Lower Extremity Strength Assessment Right Impaired Hip able to do straight leg raise Knee ext 3+/5 Ankle moving actively Coordination Assessment Gross Coordination Gross Coordination WNL Sensation Assessment Comments Sensation Comments mild tingling left knee in incisional area (prior TKA in left), no reports of changes in right knee at this time but mari wrap and dressing in place post-op Muscle Tone Muscle Tone WNL Yes M6 PT-IP Treatment Start: 07/07/19 08:21 Freq: NEEDED Status: Active Protocol: Document 07/07/19 10:14 DLM (Rec: 07/07/19 10:24 DLM [id number]) Physical Therapy Treatment Exercises Exercises Ankle Pumps,Quad Sets,Heel Slides,Straight Leg Raises, Short Arc Quads,Passive Knee Extension Hang,Seated Knee Flexion/Extension Education Education Provided Weight Bearing Status,Post-Op Packet,Safety Other Treatments Other Treatment Performed post-op education provided, answered his questions M7 PT-IP Assessment and Plan Start: 07/07/19 08:21 Freq: NEEDED Status: Active Protocol: Document 07/07/19 10:14 DLM (Rec: 07/07/19 10:24 DLM [id number]) PT Summary Assessment and Plan Potential Rehabilitation Potential Excellent Status of Condition at Evaluation Evolving Summary Impairments Pain,ROM,Strength,Balance,Bed Mobility,Transfers,Gait, Activity Tolerance Progress Towards Goals Safe For Discharge Assessment Summary Alcon is alert and motivated to go home today. He tolerated gait well with the fWW. He needs safety reminders to protect his new right TKA today. He has equipment at home that he used after his left TKA. He reports he has friends to assist him at discharge and his will be back in town on Friday. He has out-pt PT scheduled to start next week (). He appears to be safe to discharge home today with support from friends/. Frequency of Treatment Frequency Of Treatment Discharge Treatment Plan Other Recommendations and Next Treatment training completed this visit Focus Recommendations To Nursing Amount of Assist Needed Standby Assistance Discharge Recommendations PT Discharge Recommendations Home with Assistance, Outpatient PT Transportation Needs at Discharge Private Vehicle
[2019-07-07 10:43] VITALS: PULSE 67; RESP 16; O2SAT 95
--- NOTE | 2019-07-07 15:45 | PC.NURSE ---
Discharge: Pt feels ready to d/c home. Seen by LAVERNEC and given instructions, seen by PT and given their instructions. Reviewed discharge packet. Pt is a [facility] pt and he attended his classes. Questions answered. Already has rx at home. D/c home via auto w/friend.
== END 2019-07-07 11:55 | disposition home or self-care (01) ==
LOC: OR 11:40 → AC 11:40
PROVIDERS: PCP Internal Medicine; Referring Provider Internal Medicine; Visit Provider Orthopaedic Surgery
PROC: 0SRC0JZ Replacement of Right Knee Joint with Synthetic Substitute, Open Approach (ICD-10-PCS; CPT 27447; principal; 2019-07-06 13:45)
DX: M17.31 Unilateral post-traumatic osteoarthritis, right knee (principal); Z96.7 Presence of other bone and tendon implants
CPT/HCPCS: 27447; 20680; 36415; 73560; 85014; 85018; 97110; 97162; C1776; C9290; J0690; J1100; J2250; J2274; J2405; J2704; J3010